=== PATIENT | female | born 1985 | race Caucasian/White ===

== ENCOUNTER 2017-03-27 05:25 | Inpatient (IN) | payer OTHER ==
[2017-03-27] MEDS ORDERED: CITRIC ACID/SODIUM CITRATE 30 ML UNIT-DOSE CUP PO ONE (05:54)
[2017-03-27] MEDS ORDERED: ELECTROLYTE-148 SOLN 500 ML IV ONE (05:54)
[2017-03-27] MEDS ORDERED: ELECTROLYTE-148 SOLN 1,000 ML IV SCH (06:00)
--- NOTE | 2017-03-27 06:04 | HP ---
Past Medical History - Admission Chief Complaint: Pain/bleeding History of Present Illness: 31 y/o with SIUP at 38.3 weeks gestation here with complaints of abdominal pain and bleeding. Patient with h/o normal and a termination at 23 weeks gestation. Planned for primary delivery at 39 weeks on Saturday 03/31. History Source: Patient, Medical Record Limitations to Obtaining History: No Limitations - Past Medical History Cardiovascular: No: AFIB, HTN Pulmonary: No: Asthma, COPD Gastrointestinal: No: GERD, Irritable Bowel Disease Hepatobiliary: No: Hepatitis B, Hepatitis C ...: 3 ...Para: 1 ...Term: 1 ...: 0 ...Spon : 0 ...Induced : 1 ... Weeks Gestation by Dates: 38.3 ...EDC by Dates: 04/07/17 Infectious Disease: No: HIV, MRSA, STD's Psych: Yes: Anxiety. No: Bipolar Endocrine: No: Diabetes Mellitus, Hyperthyroidism - Past Surgical History Hx Myomectomy: No Hx Transabdominal Cerclage: No Additional Surgical History: D&C at 23 weeks 2/2 anomalies - Alcohol/Substance Use Hx Alcohol Use: No History of Substance Use: reports: None - Social History Usual Living Arrangement: Yes: With Spouse ADL: Independent History of Recent Travel: No Home Medications - Allergies Allergies/Adverse Reactions: Allergies Allergy/AdvReac Type Severity Reaction Status Date / Time No Known Allergies Allergy Verified 03/27/17 05:57 - Home Medications Home Medications: Ambulatory Orders Vit #108/Iron/FA [ One Tablet] 1 tab PO DAILY 03/27/17 Review of Systems - Review of Systems Constitutional: reports: No Symptoms Eyes: reports: No Symptoms HENT: reports: No Symptoms Neck: reports: No Symptoms Cardiovascular: reports: No Symptoms Respiratory: reports: No Symptoms Gastrointestinal: reports: No Symptoms Genitourinary: reports: No Symptoms Breasts: reports: No Symptoms Reported Musculoskeletal: reports: No Symptoms Integumentary: reports: No Symptoms Neurological: reports: No Symptoms Endocrine: reports: No Symptoms Hematology/Lymphatic: reports: No Symptoms Psychiatric: reports: No Symptoms Physical Exam - Maternity Constitutional: Yes: Well Nourished, No Distress, Calm Eyes: Yes: Conjunctiva Clear, EOM Intact HENT: Yes: Atraumatic, Normocephalic Neck: Yes: Supple, Trachea Midline Cardiovascular: Yes: Regular Rate and Rhythm Lungs: Clear to auscultation - Abdominal Exam/OB Fundal Height: 40 Number of Fetuses: Single Presentation: Vertex Contractions: Yes Regularity: Regular Intensity: Mild/Mod Monitor Mode: External Heart Rate (range): 130 Category: I Accelerations: Uniform Decelerations: None - Vaginal Exam/OB Vaginal Bleediing: Yes Dilatation (cm): 5 Effacement (%): 90 Amniotic Membrane Status: Intact Presentation: Vertex/Position Station: -1 - Physical Exam Psychiatric: Yes: Alert, Oriented Hemorrhage Risk Assessment - Risk Factors Medium Risk Factors: Yes: None High Risk Factors: Yes: None Risk Score: 1 Risk Level: Medium Risk Problem List - Problems (1) Term Code(s): Z34.80 - ENCOUNTER FOR SUPRVSN OF NORMAL , UNSP TRIMESTER (2) Group B streptococcal carriage complicating Code(s): O99.820 - STREPTOCOCCUS B CARRIER STATE COMPLICATING (3) Active labor at term Code(s): HNW7830 - (4) Anxiety Code(s): F41.9 - ANXIETY DISORDER, UNSPECIFIED Assessment/Plan 31 yo with SIUP at 38.3 weeks, in labor, for elective primary delivery - AFVSS - FHTS cat 1 - active labor with desire for primary delivery (initially planned for Saturday 03/31). Explained R/B/A to both c section and vaginal delivery to patient and pt does desire to proceed with cesaeran delivery. Consents signed. - GBS positive, s/p ampicillin 2gm - nursery and anesthesia aware
[2017-03-27 06:25] VITALS: BMI 30.7
[2017-03-27] MEDS ORDERED: TUBERCULIN PPD 5 TU/0.1ML SYRINGE (IN PATIENT USE ONLY) ID ONE (06:30)
[2017-03-27] MEDS ORDERED: AMPICILLIN - 2 GM in SODIUM CHLORIDE 100 ML IVPB ONE (06:39)
[2017-03-27 06:47] LABS: BASOPHIL 0.2 % (0-2.0); MCH 32.3 pg (25.7-33.7); MCHC 35.7 g/dl (32.0-36.0); MEAN CELL VOLUME 90.6 fl (80-96); MEAN PLT VOLUME 8.4 fl (7.5-11.1); NEUTROPHILS 69.5 % (42.8-82.8); PLATELET COUNT 239 K/MM3 (134-434); RDW 13.4 % (11.6-15.6); WHITE BLOOD COUNT 11.8 K/mm3 (4.0-10.0)
[2017-03-27] MEDS ORDERED: morphine SULFATE/Preservative Free 0.5 MG/ML (1cc Syringe) EP ONE (06:58)
[2017-03-27] MEDS ORDERED: ONDANSETRON 4 MG/2 ML VIAL IVPUSH PRN (06:58)
[2017-03-27 07:06] LABS: ANION GAP 13 (8-16); CALCIUM 8.9 mg/dL (8.5-10.1); CO2 22 mmol/L (21-32); CREATININE 0.5 mg/dL (0.55-1.02); GLUCOSE,RANDOM 91 mg/dL (74-106)
[2017-03-27] MEDS ORDERED: oxyCODONE HCL 5 MG TABLET PO PRN ×2 (07:08)
[2017-03-27] MEDS ORDERED: METHYLERGONOVINE MALEATE 0.2 MG/1 ML AMP IM PRN (07:08)
[2017-03-27 07:10] LABS: INR 0.95 (0.82-1.09); PROTHROMBIN TIME (PATIENT) 10.7 SEC (9.98-11.88)
[2017-03-27 07:12] LABS: ACTIVATED PTT 23.7 SECONDS (26.9-34.4)
[2017-03-27] MEDS ORDERED: OXYTOCIN 20 UNITS in 0.9% NS 20 UNIT/1,000 ML INFUS.BAG IV SCH (07:15)
--- NOTE | 2017-03-27 08:07 | OP ---
Operative Note - Note: Operative Date: 03/27/17 Pre-Operative Diagnosis: elecctive primary c section, labor Operation: primary low transverse cesaren delivery Findings: normal b/l tubes and ovaries Post-Operative Diagnosis: Same as Pre-op Surgeon: Pam Mckeon Zinc Plater: Shaggy Martin Anesthesiologist/FRAUD INVESTIGATOR: Enmanuel Adams Anesthesia: Spinal Specimens Removed: placenta, cord blood collection Estimated Blood Loss (mls): 600 Operative Report Dictated: Yes
--- NOTE | 2017-03-27 08:54 | OP ---
DATE OF OPERATION: 03/27/2017 PREOPERATIVE DIAGNOSIS: Active labor at 38.3 weeks' gestation, single intrauterine and desire for elective delivery. POSTOPERATIVE DIAGNOSIS: Active labor at 38.3 weeks' gestation, single intrauterine and desire for elective delivery. PROCEDURE: Primary low transverse delivery. SURGEON: Pam Mckeon DO ANESTHESIA: Spinal by Dr. Adams CAPTAIN [employer]RE PREVENTION BUREAU: NAGA Christianson COMPLICATIONS: None. ESTIMATED BLOOD LOSS: 600 mL. SPECIMENS REMOVED: placenta, cord blood collection. DISPOSITION: Stable to PACU. COUNTS: Sponge, needle, and instrument count reported to be correct. BRIEF HISTORY AND PROCEDURE: The patient is a 31-year-old G3, P1-1-0-1 female with a past medical history of anxiety, who presented to labor and delivery on March 27, 2017, approximately 5:45 a.m. complaining of vaginal bleeding and pain, was found to be in active labor. The patient had been counseled in the office previously and had a scheduled primary delivery scheduled for March 31, 2017. Upon arrival to the labor and delivery floor, patient was given her options on whether to proceed with a normal vaginal delivery or continue with her elective primary delivery. Patient elected to proceed with the primary delivery. Risks , benefits and alternatives were discussed with the patient and consents signed. At that point the patient was prepped in the preop area, and Anesthesia and Nursery were informed. Patient was then taken back to the operating room where she was given spinal anesthesia by Dr. Adams and placed on the operating room table in the dorsal supine position. She was given a Marie catheter under sterile conditions and prepped and draped in the usual sterile fashion. A hard timeout was then performed. A Pfannenstiel skin incision was created in the skin using the scalpel and carried through to the underlying layer of rectus fascia with the scalpel as well as with the Bovie. The fascia was incised on either side of the midline with the Bovie, and the fascial incision was carried in a superolateral direction sharply. The fascia was tented upward and dissected off the underlying layer of rectus muscle with the Bovie. The musculature was retracted laterally, and the peritoneum was entered bluntly. A bladder blade was then inserted, and a transverse incision was created in the lower uterine segment with the scalpel, which was extended in a superolateral direction bluntly. The infant was then delivered from the left occipitotransverse position without issue. The anterior and posterior shoulders delivered with ease along with the remainder of the infant. The cord was clamped twice and cut in between, and the was taken over to the warmer to be assessed by Neonatology, where scores were 9 and 9. Weight was 8 pounds 14 ounces and 20.5 inches for length. Attention was then turned to the placenta, which was delivered intact with a 3- vessel cord, and this was manually extracted from the uterus. The uterus was then exteriorized from the abdomen, inspected, and cleared of all amniotic membrane and debris with a dry lap sponge. The hysterotomy was reapproximated in 2 layers in an interrupted fashion, the first layer with 1 Vicryl and an imbricating layer using 0 Biosyn suture. Excellent hemostasis was achieved. The bilateral gutters and posterior cul-de-sac were cleared of all debris. The uterus was placed back in the abdomen. Bilateral gutters were again inspected and clear of all amniotic fluid and blood , and hysterotomy was again reinspected and noted to be hemostatic. The peritoneal layer was reapproximated using 2-0 chromic in a running fashion. The musculature was reapproximated in 2 interrupted sutures using absorbable suture. The fascia was reapproximated using 1 Vicryl in a running fashion. The subcutaneous tissue was irrigated and reapproximated in a running layer using 1 Vicryl suture , and the skin was reapproximated using 3-0 Vicryl in a subcuticular fashion. Steri- Strips were applied. The patient tolerated the procedure well, was recovering in stable condition in PACU at the time of this dictation. Sponge, needle, and instrument count was reported to be correct. PAM MCKEON DO /[id number] MTDD
[2017-03-27] MEDS: IBUPROFEN 800 MG/8 ML IJ IVPB PRN ×2 (15:52→23:20)
[2017-03-28] MEDS ORDERED: BISACODYL 10 MG SUPP.RECT RC PRN (07:08)
[2017-03-28 08:27] LABS: BASOPHIL 0.4 % (0-2.0); EOSINOPHIL 0.8 % (0-4.5); MEAN CELL VOLUME 91.6 fl (80-96); MEAN PLT VOLUME 8.2 fl (7.5-11.1); NEUTROPHILS 76.9 % (42.8-82.8); PLATELET COUNT 213 K/MM3 (134-434); RDW 13.9 % (11.6-15.6); WHITE BLOOD COUNT 11.5 K/mm3 (4.0-10.0)
[2017-03-28] MEDS: IBUPROFEN 600 MG TABLET (FP) PO PRN ×2 (11:02→21:08)
[2017-03-28] MEDS: SIMETHICONE 80 MG TAB.CHEW (FP) PO PRN ×2 (11:03→21:12)
[2017-03-28] MEDS: ACETAMINOPHEN 325 MG TABLET (FP) PO PRN ×2 (11:03→21:07)
--- NOTE | 2017-03-28 14:51 | PN ---
Post Progress Note - Subjective Subjective: Pt seen/evaluated and doing well. Pain controlled. Tolerating regular diet. Ambulating, voiding, passing flatus. No complaints. Denies FERNANDO/RUQ pain or F/C/ CP/SOB. VB minimal. Type of Delivery: Primary C/S Vital Signs: Vital Signs Temperature 97.8 F 03/28/17 07:40 Pulse Rate 96 H 03/28/17 07:40 Respiratory Rate 20 03/28/17 07:40 Blood Pressure 106/63 03/28/17 07:40 O2 Sat by Pulse Oximetry (%) 100 03/27/17 09:00 Uterus: Yes: Fundus Firm, Fundus below umbilicus Incision: Yes: Dressing dry and intact Abdomen/GI: Yes: Abdomen soft, Passing flatus, Tolerating PO. No: Abdominal Distention, Tender Lochia: Yes: Rubra Lochia, amount: Small Extremities: Yes: Calves non-tender. No: Edema Perineum: Yes: Intact Activity: Ambulating - Labs Labs: CBC WBC 11.5 K/mm3 (4.0-10.0) H 03/28/17 07:00 RBC 4.00 M/mm3 (3.60-5.2) 03/28/17 07:00 Hgb 12.8 GM/dL (10.7-15.3) 03/28/17 07:00 Hct 36.6 % (32.4-45.2) 03/28/17 07:00 MCV 91.6 fl (80-96) 03/28/17 07:00 MCH 32.0 pg (25.7-33.7) 03/28/17 07:00 MCHC 35.0 g/dl (32.0-36.0) 03/28/17 07:00 RDW 13.9 % (11.6-15.6) 03/28/17 07:00 Plt Count 213 K/MM3 (134-434) 03/28/17 07:00 MPV 8.2 fl (7.5-11.1) 03/28/17 07:00 Neutrophils % 76.9 % (42.8-82.8) 03/28/17 07:00 Lymphocytes % 17.0 % (8-40) D 03/28/17 07:00 Monocytes % 4.9 % (3.8-10.2) 03/28/17 07:00 Eosinophils % 0.8 % (0-4.5) 03/28/17 07:00 Basophils % 0.4 % (0-2.0) 03/28/17 07:00 Problem List - Problems (1) Term Code(s): Z34.80 - ENCOUNTER FOR SUPRVSN OF NORMAL , UNSP TRIMESTER (2) Group B streptococcal carriage complicating Code(s): O99.820 - STREPTOCOCCUS B CARRIER STATE COMPLICATING (3) Active labor at term Code(s): QAX3498 - (4) Anxiety Code(s): F41.9 - ANXIETY DISORDER, UNSPECIFIED Assessment/Plan 31 yo POD#1 s/p elective primary delivery - AFVSS - Hgb 12.8 post op - encourage ambulation - regular diet, oral pain meds - routine post op care
--- NOTE | 2017-03-28 15:32 | PN ---
Progress Note (short form) - Note Progress Note: Anesthesia POD#1 S/P under spinal A and DM VSS,pain is under control,no N/V,extremities recovered fully. Daily Leary MD.
[2017-03-29] MEDS: SIMETHICONE 80 MG TAB.CHEW (FP) PO PRN ×3 (03:14→20:17)
[2017-03-29] MEDS: ACETAMINOPHEN 325 MG TABLET (FP) PO PRN ×3 (03:15→20:16)
[2017-03-29] MEDS: IBUPROFEN 600 MG TABLET (FP) PO PRN ×3 (03:15→20:15)
--- NOTE | 2017-03-29 08:25 | PN ---
Post Progress Note - Subjective Subjective: Pt seen/evaluated this a.m. Doing well. Pain controlled, tolerating diet, ambulating, voiding, passing flatus. VB minimal. Denies CP/SOB/F/C/FERNANDO. Type of Delivery: Primary C/S Vital Signs: Vital Signs Temperature 98.0 F 03/28/17 22:00 Pulse Rate 85 03/28/17 22:00 Respiratory Rate 18 03/28/17 22:00 Blood Pressure 111/71 03/28/17 22:00 O2 Sat by Pulse Oximetry (%) 100 03/27/17 09:00 Uterus: Yes: Fundus Firm, Fundus below umbilicus Incision: Yes: Sutures intact Abdomen/GI: Yes: Abdomen soft, Passing flatus, Tolerating PO. No: Abdominal Distention Lochia: Yes: Rubra Lochia, amount: Small Extremities: Yes: Calves non-tender. No: Edema Perineum: Yes: Intact Activity: Ambulating - Labs Labs: CBC WBC 11.5 K/mm3 (4.0-10.0) H 03/28/17 07:00 RBC 4.00 M/mm3 (3.60-5.2) 03/28/17 07:00 Hgb 12.8 GM/dL (10.7-15.3) 03/28/17 07:00 Hct 36.6 % (32.4-45.2) 03/28/17 07:00 MCV 91.6 fl (80-96) 03/28/17 07:00 MCH 32.0 pg (25.7-33.7) 03/28/17 07:00 MCHC 35.0 g/dl (32.0-36.0) 03/28/17 07:00 RDW 13.9 % (11.6-15.6) 03/28/17 07:00 Plt Count 213 K/MM3 (134-434) 03/28/17 07:00 MPV 8.2 fl (7.5-11.1) 03/28/17 07:00 Neutrophils % 76.9 % (42.8-82.8) 03/28/17 07:00 Lymphocytes % 17.0 % (8-40) D 03/28/17 07:00 Monocytes % 4.9 % (3.8-10.2) 03/28/17 07:00 Eosinophils % 0.8 % (0-4.5) 03/28/17 07:00 Basophils % 0.4 % (0-2.0) 03/28/17 07:00 Problem List - Problems (1) Term Code(s): Z34.80 - ENCOUNTER FOR SUPRVSN OF NORMAL , UNSP TRIMESTER (2) Group B streptococcal carriage complicating Code(s): O99.820 - STREPTOCOCCUS B CARRIER STATE COMPLICATING (3) Active labor at term Code(s): CTH6549 - (4) Anxiety Code(s): F41.9 - ANXIETY DISORDER, UNSPECIFIED Assessment/Plan 31 yo POD#2 s/p elective primary delivery - AFVSS - Hgb 12.8 post op - encourage ambulation - regular diet, oral pain meds - routine post op care
--- NOTE | 2017-03-29 08:25 | DS ---
Physical Exam-OPEN SHANK COVERER Vital Signs: Vital Signs Temperature 98.0 F 03/28/17 22:00 Pulse Rate 85 03/28/17 22:00 Respiratory Rate 18 03/28/17 22:00 Blood Pressure 111/71 03/28/17 22:00 O2 Sat by Pulse Oximetry (%) 100 03/27/17 09:00 Labs: CBC, BMP 03/28/17 07:00 03/27/17 06:00 Delivery - Delivery Type of Anesthesia: Spinal Episiotomy/Laceration: None EBL (cc): 600 Delivery, Single - Stages of Labor Date 1st Stage Initiatied: 03/27/17 Time 1st Stage Initiated: 01:00 Date of Delivery: 03/27/17 Time of Delivery: 07:30 Time Placenta Delivered: 07:31 - Condition of Specialist Physician/International Freight Forwarder Present: Yes Name: Marlen Oconnell Gender: Male Weight: 8 lb 14 oz Position: Left, OT Total Hours ROM (Hrs/Mins): 0hrs 2min - 1 Minute Total Score: 9 5 Minutes Total Score: 9 - Feeding Plan Initial Plan: Exclusive throughout hospitalization Discharge Summary Reason For Visit: Current Active Problems Active labor at term (Acute) Anxiety (Acute) Group B streptococcal carriage complicating (Acute) Term (Acute) - Instructions - Home Medications Comprehensive Discharge Medication List: Ambulatory Orders Vit #108/Iron/FA [ One Tablet] 1 tab PO DAILY 03/27/17
[2017-03-30 07:40] LABS: BASOPHIL 0.6 % (0-2.0); EOSINOPHIL 3.3 % (0-4.5); MCH 31.9 pg (25.7-33.7); MCHC 35.1 g/dl (32.0-36.0); MEAN CELL VOLUME 90.7 fl (80-96); MEAN PLT VOLUME 7.6 fl (7.5-11.1); NEUTROPHILS 62.2 % (42.8-82.8); PLATELET COUNT 278 K/MM3 (134-434); RDW 13.8 % (11.6-15.6); WHITE BLOOD COUNT 10.6 K/mm3 (4.0-10.0)
[2017-03-30 08:55] VITALS: BP 120/66; PULSE 91; TEMP 97.9
--- NOTE | 2017-04-02 17:13 | PATH ---
Surgical Pathology Report Patient Name: BRIAN STACY [facility]. Rec. #: [id number] /Age/Gender: 1985 (Age: 31) / F Account: [id number] Location: [facility] OBS/INSTRUCTIONAL SUPPORT SERVICES DIRECTOR Taken: 03/27/2017 Received: 03/28/2017 Reported: 04/02/2017 Physicians: Pam Mckeon M.D. Specimen(s) Received PLACENTA Clinical History Final Diagnosis PLACENTA, SECTION: 577 g THIRD TRIMESTER PLACENTA WITH TRIVASCULAR UMBILICAL CORD AND UNREMARKABLE PLACENTAL MEMBRANES. Electronically Signed Nannette Lugo M.D. Gross Description The specimen is received fresh labeled placenta and is a 577 gram, 19.5 x 16.5 x 3.8 cm. placenta with attached membranes and umbilical cord. The attached membranes are lópez, translucent with focal opacities and insert marginally. The umbilical cord measures 27 cm. in length and averages 1.1 cm. in diameter. The cord inserts eccentrically, 3.5 cm. to the nearest margin. No true knots or strictures are identified. Cut surface of the umbilical cord reveals 3 vessels. The surface is mohan blue with a moderate fibrin deposition and appropriate caliber vessels. The maternal surface is red-brown with focal defects. Sectioning reveals red-brown, spongy parenchyma. No lesions are identified. Physical Trainer sections are submitted in three cassettes as follows: 1- membrane rolls and umbilical cord; 2-3- full thickness sections of placenta. 04/01/201704/01/2017
== END 2017-03-30 13:00 | disposition home or self-care (01) | DRG 540 ==
LOC: JLDR 05:25 → J3W 09:25
PROVIDERS: ADMIT Obstetrics & Gynecology; ATTEND Obstetrics & Gynecology
PROC: 10D00Z1 Extraction of Products of Conception, Low, Open Approach (ICD-10-PCS; principal; 2017-03-27)
PROC: 3E0334Z Introduction of Serum, Toxoid and Vaccine into Peripheral Vein, Percutaneous Approach (ICD-10-PCS; 2017-03-27)
DX: O82 Encounter for cesarean delivery without indication (principal); Z3A.38 38 weeks gestation of pregnancy; Z37.0 Single live birth; O26.893 Other specified pregnancy related conditions, third trimester; Z22.330 Carrier of Group B streptococcus; Z67.91 Unspecified blood type, Rh negative; O99.343 Other mental disorders complicating pregnancy, third trimester; F41.9 Anxiety disorder, unspecified
CPT/HCPCS: 36415; 80048; 85025; 85461; 85610; 85730; 86593; 86850; 86900; 86901; 86999; 88307-TC